=== PATIENT | male | born 1980 | race Caucasian/White ===

== ENCOUNTER 2024-10-16 15:29 | Outpatient (CLI) | payer BC, SELFPAY ==
[2024-10-16 16:00] LABS: Basophils Absolute Auto 0.13 K/mm3 (0.00-0.10); Basophils Percent Auto 1.3 % (0.0-1.0); Eosinophils Absolute Auto 0.54 K/mm3 (0.02-0.50); Eosinophils Percent Auto 5.5 % (1.0-6.0); Hematocrit 52.6 % (40.0-54.0); Hemoglobin 19.2 g/dL (14.0-18.0); Immature Granulocyte Absolute 0.06 K/mm3 (0.00-0.00); Immature Granulocyte Percent A 0.6 % (0.0-0.0); Lymphocytes Absolute Auto 2.76 K/mm3 (1.10-4.50); Mean Corpuscular HGB Conc 36.5 g/dL (32-36); Mean Corpuscular Hemoglobin 33.3 pg (27.0-31.0); Mean Corpuscular Volume 91.2 fL (78.0-102.0); Mean Platelet Volume 8.9 fl (8.7-11.0); Monocytes Absolute Auto 0.79 K/mm3 (0.10-0.90); Neutrophils Absolute Auto 5.57 K/mm3 (1.70-7.20); Neutrophils Percent Auto 56.6 % (50.0-70.0); Platelet Count Result 314 K/mm3 (150-420); Red Blood Count 5.77 M/mm3 (4.70-6.10); White Blood Count 9.9 K/mm3 (4.8-10.8)
[2024-10-16 16:01] LABS: Add Urine Microscopic? NO; Appearance Urine Clear (Clear); Bilirubin Urine Negative (Negative); Blood Urine Negative (Negative); Color Urine Yellow (Yellow); Glucose Urine UA Negative (Negative); Ketones Urine Negative (Negative); Leukocyte Esterase Ur Negative (Negative); Nitrate Urine Negative (Negative); Protein Urine Negative (Negative); Specific Grav Ur 1.025 (1.010-1.020)
[2024-10-16 16:25] LABS: Hemoglobin A1C 5.1 % (<5.7)
[2024-10-16 17:11] LABS: Erythrocyte Sedimentation Rate 5 mm/hr (0-15)
[2024-10-16 17:12] LABS: Alanine Aminotransferase 42 U/L (16-63); Albumin Level 4.3 g/dL (3.4-5.0); Alkaline Phosphatase 80 U/L (46-116); Anion Gap 7 mmol/L (4-12); Aspartate Amino Transferase 27 U/L (15-37); Bilirubin,Total 0.5 mg/dL (0.00-1.00); Blood Urea Nitrogen 21 mg/dL (7-18); CRP < 0.5 mg/dL (0.0-0.9); Calcium 9.7 mg/dL (8.5-10.1); Carbon Dioxide 35 mmol/L (21-32); Chloride 101 mmol/L (98-108); Cholesterol 203 mg/dL (0-200); Estimated Glomerular Filt Rate > 60; Ferritin 120 ng/mL (26-388); Free T3 3.15 pg/mL (2.18-3.98); Free T4 Free Thyroxine 0.77 ng/dL (0.76-1.46); Glucose 109 mg/dL (70-99); HDL Direct 34 mg/dL (40-60); Iron 95 ug/dL (65-175); LDL Cholesterol Calculated 83 mg/dL (<130); Osmolality Calculated 300 mOsm/kg (285-295); Potassium 5.1 mmol/L (3.5-5.1); Sodium 143 mmol/L (136-145); Thyroid Stimulating Hormone 1.33 uIU/mL (0.36-3.74); Total Protein 7.8 g/dL (6.4-8.2); Triglycerides 429 mg/dL (0-150); Vitamin B12 709 pg/mL (193-986)
[2024-10-16 17:13] LABS: LDL Cholesterol Direct 113 mg/dL (0-130)
== END 2024-10-16 15:30 | disposition home or self-care (01) ==
PROVIDERS: PCP Internal Medicine; Visit Provider Internal Medicine
DX: G62.9 Polyneuropathy, unspecified (principal); I10 Essential (primary) hypertension; E78.2 Mixed hyperlipidemia; M25.511 Pain in right shoulder
CPT/HCPCS: 36415; 80053; 80061; 81003; 81256; 81270; 82607; 82668; 82728; 83036; 83540; 83721; 84439; 84443; 84481; 85025; 85652; 86038; 86039; 86140; 87086

== ENCOUNTER 2025-06-04 10:37 | Outpatient (CLI) | payer MEDICARE, SELFPAY ==
[2025-06-04 11:12] LABS: Hematocrit 49.7 % (40.0-54.0); Hemoglobin 17.7 g/dL (14.0-18.0); Immature Granulocyte Percent A 0.6 % (0.0-0.0); Lymphocytes Absolute Auto 2.56 K/mm3 (1.10-4.50); Mean Corpuscular HGB Conc 35.6 g/dL (32-36); Mean Corpuscular Hemoglobin 32.6 pg (27.0-31.0); Mean Corpuscular Volume 91.5 fL (78.0-102.0); Nucleated Red Blood Cells Absolute Auto 0.00 K/mm3 (0.00-0.00); Nucleated Red Blood Cells Perc 0.0 % (0-0.0); Platelet Count Result 286 K/mm3 (150-420); Red Blood Count 5.43 M/mm3 (4.70-6.10); White Blood Count 8.0 K/mm3 (4.8-10.8)
[2025-06-04 11:34] LABS: Alanine Aminotransferase 26 U/L (6-50); Albumin Level 4.5 g/dL (3.5-5.1); Alkaline Phosphatase 55 U/L (38-126); Anion Gap 10 mmol/L (4-12); Aspartate Amino Transferase 31 U/L (17-59); Bilirubin,Total 0.7 mg/dL (0.2-1.3); Blood Urea Nitrogen 20 mg/dL (9-20); Calcium 10.6 mg/dL (8.4-10.2); Carbon Dioxide 32 mmol/L (22-30); Chloride 100 mmol/L (98-107); Estimated Glomerular Filt Rate > 60; Glucose 123 mg/dL (65-110); Iron 181 ug/dL (49-181); Osmolality Calculated 297 mOsm/kg (285-295); Potassium 4.4 mmol/L (3.4-5.0); Sodium 142 mmol/L (137-145); Total Protein 7.3 g/dL (6.3-8.2)
[2025-06-04 11:50] LABS: HIV 1 P24 AG Negative (Negative); HIV 1/2 AB Negative (Negative)
--- OUTSIDE RECORDS SUMMARY | 2025-06-04 12:05 | XMS_ITS | Clinical Summary ---
Author Organization [facility] [employer] Address [address] [place] [address] Care Team Providers Care Customer Service Officer Name Role Phone Unavailable Primary Care Provider Unavailabl e Source Comments [facility] [employer],non-owned Affiliates and Associated Physician Practices is amultiple site organization consisting of ambulatory clinics and hospital sitesin [place], [place], [place] and [place]. This disclosure is being madepursuant to the Care Everywhere program and may not contain all information available regarding this patient. Last updated 18.[employer] Allergies No known active allergies Medications * Be aware that medications may not be up to date on this document. Alwaysverify current medications with the patient. 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 0 01/26/2015 Social History Tobacco Use Types Packs/Day Years Used Date Smoking Tobacco: Never Smokeless Tobacco: Never Tobacco Cessation:Counseling Given: Not Answered Sex and Gender Information Value Date Recorded Sex Assigned at Not on file Legal Sex Male 5:51 PM DEPARTMENT DIRECTOR Gender Identity Not on file Sexual Orientation Not on file Last Filed Vital Signs Vital Sign Reading Time Taken Comments Blood Pressure 130/96 10/07/2017 10:46 AM DEPARTMENT DIRECTOR Pulse 86 04/05/2023 12:39 PM CDT Temperature 37.1 C (98.7 F) 10/07/2017 10:46 AM DEPARTMENT DIRECTOR Respiratory Rate 17 04/05/2023 12:39 PM CDT Oxygen Saturation 95% 04/05/2023 12:39 PM CDT Inhaled Oxygen Concentration - - Weight 100.2 kg (221 lb) 04/05/2023 12:39 PM CDT Height 188 cm (6' 2) 04/05/2023 12:39 PM CDT Body Mass Index 28.37 04/05/2023 12:39 PM CDT Plan of Treatment Health Maintenance Due Date Last Done Comments LIPID TESTING 1980 HEPATITIS C SCREENING 11/29/1998 DTAP/TDAP/TD VACCINES (1 - Tdap) 12/04/1999 HEPATITIS B VACCINE (1 of 3 - 19+ 3-dose series) 12/04/1999 HPV VACCINE (1 - 3-dose SCDM series) 12/04/2007 SCREENING FOR DIABETES 01/04/2023 5, 02/08/2015, 02/07/2015, Additional history exists COVID-19 VACCINE ( - season) 2024 DEPRESSION SCREENING 10/02/2024 INFLUENZA VACCINE (#1) 2025 ZOSTER VACCINE (1 of 2) 2030 HIV SCREENING Completed 01/17/2023 HIB VACCINE Aged Out No longer eligi ble based on patient's age to complete this topic MENINGOCOCCAL (Group B) VACCINE SHARED DECISION-MAKING Aged Out No longer eligible based on patient's age to complete this topic MENINGOCOCCAL GROUPS A/C/Y/W VACCINE Aged Out No longer eligible based on patient's age to complete this topic PNEUMOCOCCAL VACCINE Aged Out No long er eligible based on patient's age to complete this topic Procedures Procedure Name Priority Date/Time Associated Diagnosis Comments HIV-1 HIV-2 ANTIBODY + HIV P24 AG PANEL Routine 01/17/2023 2:12 PM CDT Memory loss BASIC METABOLIC PANEL (CALCIUM TOTAL) Routine 02/09/2015 11:57 PM CDT from Last 3 Months or Most Recently Relevant to Health Maintenance Results * HIV-1 HIV-2 ANTIBODY + HIV P24 AG PANEL (01/17/2023 2:12 PM CDT) [facility] HIV Screen 4th Generation w Reflex Non Reactive Non Reactive [facility] INSURANCE BILL Comment: HIV Negative HIV-1/HIV-2 antibodies and HIV-1 p24 antigen were NOT detected. There is no laboratory evidence of HIV infection. FASTING Blood BLOOD SPECIMEN / Unknown 01/17/2023 2:12 PM CDT 01/17/2023 Narrative Resulting Agency Comment Lab Testing performed at: [facility] [address] [facility] [phone] us Rm Cota MD LAB - CHEMISTRY ORDERABLES Final Result [facility] INSURANCE BILL [address] [place] [address] * (ABNORMAL) BASIC METABOLIC PANEL (CALCIUM TOTAL) (02/09/2015 11:57 PM CDT) [facility] BUN 23 7 - 26 mg/dL [facility] Creatinine 0.7 0.6 - 1.2 mg/dL [facility] Sodium 142 136 - 145 mmol/L [facility] Potassium 4.3 3.5 - 4.5 mmol/L [facility] Chloride 102 98 - 107 mmol/L [facility] CO2 32(H) 22 - 29 mmol/L [facility] Glucose 125(H) 70 - 115 mg/dL [facility] Calcium 9.6 8.4 - 10.2 mg/dL [facility] Anion Gap 12 8 - 18 [facility] BUN/Creatinine Ratio 33(H) 7 - 23 [facility] Osmolality Calculated 284 270 - 300 mOsm/kg [facility] eGFR >60 >60 mL/min/1.7 3 m2 [facility] Blood specimen (specimen) BLOOD SPECIMEN / Unknown 02/09/2015 11:57 PM CDT 02/10/2015 12:13 AM CDT us Bao Granados MD LAB - CHEMISTRY [place] [address], [facility] [phone] from Last 3 Months or Most Recently Relevant to Health Maintenance Insurance [facility] MEDICAID
--- OUTSIDE RECORDS SUMMARY | 2025-06-04 12:05 | XMS_ITS | Clinical Summary ---
Author Organization [facility] Address [address] [place] [address] Phone Care Team Providers Care Manager Integration Name Role Phone Unavailable Primary Care Provider Unavailabl e Allergies No known active allergies Medications No known medications Social History Tobacco Use Types Packs/Day Years Used Date Smoking Tobacco: Never Assessed Sex and Gender Information Value Date Recorded Sex Assigned at Not on file Legal Sex Male 10:27 AM CDT Gender Identity Not on file Sexual Orientation Not on file Plan of Treatment Health Maintenance Due Date Last Done Comments DTAP/TDAP/TD VACCINES (1 - Tdap) 12/04/1999 HEPATITIS B VACCINES (1 of 3 - 19+ 3-dose series) 01/2000 HPV VACCINES (1 - 3-dose SCDM series) 12/04/2007 INFLUENZA VACCINE (#1) 2025
--- OUTSIDE RECORDS SUMMARY | 2025-06-04 12:05 | XMS_ITS | Clinical Summary ---
Author Organization [facility] Address [address] [place] [address] Care Team Providers Care Pile Driving Technician Name Role Phone Mamie Zamora MD Primary Care Provider [phone] Medications cyclobenzaprine (FLEXERIL) 10 MG tablet Take 1 tablet (10 mg total) by mouth 3 (three) times daily as needed. 12/24/2024 Active losartan-hydroCH LOROthiazide (HYZAAR) 100-12.5 MG tablet Take 1 tablet by mouth daily. 11/07/2024 Active Active Problems Problem Noted Date Diagnosed Date Polycythemia 02/27/2025 Encounters Date Type Department Care Team Description 04/24/2025 9:19 AM CDT - 04/24/2025 11:59 PM CDT Hospital Encounter [facility] [place] [address] [address] Carmen Turner MD Therapeutic Phlebotomy Discharge Disposition: Home or Self Care (Routine Discharge) 04/24/2025 9:18 AM CDT Hospital Encounter [facility] [address] [address] Carmen Turner MD Discharge Disposition: Home or Self Care (Routine Discharge) 04/24/2025 Travel 04/16/2025 Orders Only [facility] [place] [address] [address] Carmen Turner MD 03/21/2025 8:45 AM CDT - 03/21/2025 11:59 PM CDT Hospital Encounter [facility] [address] [address] Carmen Turner MD Discharge Disposition: Home or Self Care (Routine Discharge) 03/21/2025 Orders Only [facility] [address] [place] [address] Carmen Turner MD 03/21/2025 Travel from Last 3 Months Social History Tobacco Use Types Packs/Day Years Used Date Smoking Tobacco: Every Day Cigarettes Smokeless Tobacco: Never Tobacco Cessation:Ready to Q uit: Not Asked; Counseling Given: Not Answered Alcohol Use Standard Drinks/Week Comments Yes 0 (1 standard drink = 0.6 oz pur e alcohol) occasionally Sex and Gender Information Value Date Recorded Sex Assigned at Male 01/08/2025 7:59 AM CDT Legal Sex Male 7:36 PM CDT Gender Identity Not on file Sexual Orientation Not on file Last Filed Vital Signs Vital Sign Reading Time Taken Comments Blood Pressure 118/84 04/24/2025 9:49 AM CDT Pulse 82 04/24/2025 9:49 AM CDT Temperature 35.9 C (96.7 F) 04/24/2025 9:49 AM CDT Respiratory Rate 16 04/24/2025 9:49 AM CDT Oxygen Saturation 95% 04/24/2025 9:49 AM CDT Inhaled Oxygen Concentration - - Weight 96.8 kg (213 lb 6.4 oz) 04/24/2025 9:49 A M CDT Height 188 cm (6' 2) 01/16/2025 10:21 AM CDT Body Mass Index 27.4 01/16/2025 10:21 AM CDT Plan of Treatment Health Maintenance Due Date Last Done Comments Annual Physical 12/04/1983 Hepatitis C 1998 DTaP, Tdap and Td Vaccines ( 1 - Tdap) 12/04/1999 Hepatitis B Vaccines (1 of 3 - 19+ 3-dose series) 12/04/1999 Pneumococcal Vaccine: Pediat rics (0 to 5 Years) and At-Risk Patients (6 to 49 Years) (1 of 2 - PCV) 12/04/1999 HPV Vaccines (1 - 3-dose SCD M series) 12/04/2007 COVID-19 Vaccine (2023-2 5 season) 2025 Meningococcal B Vaccine Aged Out No l onger eligible based on patient's age to complete this topic Meningococcal Vaccine Aged Out No alessandra geronimo eligible based on patient's age to complete this topic RSV Immunizations Under 20 Months Aged Out No longer eligible based on patient's age to complete this topic Procedures Procedure Name Priority Date/Time Associated Diagnosis Comments HEMATOCRIT Routine 04/24/2025 9:28 AM CDT Polycythemia BLOOD GAS, ARTERIAL LAB Routine 03/21/2025 9:22 AM CDT Polycythemia CBC W/DIFF AUTOMATED Routine 03/21/2025 9:08 AM CDT Polycythemia from Last 3 Months Results * HEMATOCRIT (04/24/2025 9:28 AM CDT) HCT 50.5 37.0 - 52.0 % 04/24/2025 9:32 AM CDT [facility] 04/24/2025 9:28 AM CDT us Carmen Turner MD LABORATORY Final Result [facility] [address] [place] [address], * (ABNORMAL) ARTERIAL BLOOD GAS (03/21/2025 9:22 AM CDT) PH ARTERIAL 7.49(H) 7.35 - 7.45 03/21/2025 9:30 AM CDT [facility] PCO2 44.0 35.0 - 45.0 MMHG 03/21/2025 9:30 AM CDT [facility] PO2 82.0(L) 83 - 108 MMHG 03/21/2025 9:30 AM CDT [facility] TOTAL CO2 ARTERIAL 34.9(H) 19.0 - 24.0 MMOL/L 03/21/2025 9:30 AM CDT [facility] BASE EXCESS 9.0(H) 0 - 3 MMOL/L 03/21/2025 9:30 AM CDT [facility] O2 SATURATION 97 94.0 - 98.0 % 03/21/2025 9:30 AM CDT [facility] BICARB ARTERIAL 33.5(H) 21.0 - 28.0 MMOL/L 03/21/2025 9:30 AM CDT [facility] SAI TEST N/A 03/21/2025 9:26 AM CDT [facility] O2 ADMIN ARTERIAL ROOM AIR 03/21/2025 9:26 AM CDT [facility] DRAW SITE ARTERIAL RIGHT BRACHIAL 03/21/2025 9:26 AM CDT [facility] 03/21/2025 9:22 AM CDT Carmen Turner MD LABORATORY Final Result [facility] [address] [place] [address], * (ABNORMAL) CBC W/DIFF AUTOMATED (03/21/2025 9:08 AM CDT) WBC 7.60 4.00 - 10.80 x10'3/uL 03/21/2025 9:14 AM CDT [facility] RBC 5.44 4.50 - 6.10 x10'6/uL 03/21/2025 9:14 AM CDT [facility] HGB 18.0 13.0 - 18.0 G/DL 03/21/2025 9:14 AM CDT [facility] HCT 49.5 37.0 - 52.0 % 03/21/2025 9:14 AM CDT [facility] MCV 91.0 78.0 - 100.0 FL 03/21/2025 9:14 AM CDT [facility] MCH 33.1(H) 27.0 - 31.0 PG 03/21/2025 9:14 AM CDT [facility] MCHC 36.4(H) 33.0 - 36.0 G/DL 03/21/2025 9:14 AM CDT [facility] RDW 12.0 11.5 - 14.5 % 03/21/2025 9:14 AM CDT [facility] PLT 252 150 - 350 x10'3/uL 03/21/2025 9:14 AM CDT [facility] MPV 9.1 7.4 - 10.4 FL 03/21/2025 9:14 AM CDT [facility] CBC COMMENT NORMAL REFERENCE RANGE NOT ESTABLISHED FOR THE PROPORTIONAL LEUKOCYTE DIFFERENTIAL. 03/21/2025 9:14 AM CDT [facility] NEUTROPHILS % 55.0 % 03/21/2025 9:14 AM CDT [facility] LYMPHOCYTES % 27.2 % 03/21/2025 9:14 AM CDT [facility] MONOCYTES % 8.3 % 03/21/2025 9:14 AM CDT [facility] EOSINOPHILS % 8.0 % 03/21/2025 9:14 AM CDT [facility] BASOPHILS % 1.1 % 03/21/2025 9:14 AM CDT [facility] IMMATURE GRANS % 0.4 % 03/21/20 9:14 AM CDT [facility] NRBC % 0.0 % 03/21/2025 9:14 AM CDT [facility] ABS. NEUTROPHILS 4.18 1.60 - 8.30 x10'3/uL 03/21/2025 9:14 AM CDT [facility] ABS. LYMPHOCYTES 2.07 0.80 - 4.70 x10'3/uL 03/21/2025 9:14 AM CDT [facility] ABS. MONOCYTES 0.63 0.00 - 1.50 x10'3/uL 03/21/2025 9:14 AM CDT [facility] ABS. EOSINOPHILS 0.61(H) 0.00 - 0.40 x10'3/uL 03/21/2025 9:14 AM CDT [facility] ABS. BASOPHILS 0.08 0.00 - 0.20 x10'3/uL 03/21/2025 9:14 AM CDT [facility] ABS. IMMATURE GRANULOCYTES 0.03 0.00 - 0.03 x10'3/uL 03/21/2025 9:14 AM CDT [facility] ABS. NUCLEATED RBC'S 0.00 0.00 - 0.01 x10'3/uL 03/21/2025 9:14 AM CDT [facility] 03/21/2025 9:08 AM CDT us Carmen Turner MD LABORATORY Final Result [facility] [address] [place] [id number], from Last 3 Months Insurance MEDICAID MEDICARE Care Teams Pile Driving Technician Relationship Specialty Start Date End Date Mamie Zamora MD [address] [place] [address] PCP - General INTERNAL MEDICINE 01/03/25
[2025-06-04 12:09] LABS: Ferritin 34.30 ng/mL (17.9-464)
== END 2025-06-04 10:38 | disposition home or self-care (01) ==
LOC: CHSLAB 10:40
PROVIDERS: PCP Internal Medicine; Visit Provider Internal Medicine Hematology
DX: E83.119 Hemochromatosis, unspecified (principal)
CPT/HCPCS: 36415; 80053; 82728; 83540; 85025; 87806

== ENCOUNTER 2025-06-28 08:52 | Outpatient (CLI) | payer MEDICARE, SELFPAY ==
--- NOTE | ~2025-06-28 | MR_ITS ---
EXAMINATION: MR abdomen wo/w con DATE: 06/28/2025 10:16 INDICATION: Hemachromatosis. TECHNIQUE: Magnetic resonance imaging (MRI) of the abdomen was performed without and with 19 mL MultiHance intravenous contrast. COMPARISON: None. FINDINGS: There is diffuse hepatic steatosis. There is mild splenomegaly. The gallbladder, pancreas, adrenal glands, and right kidney are normal. There is a 3 mm cyst in left kidney. There are no dilated loops of bowel. There are no pathologically enlarged lymph nodes. There is no ascites. IMPRESSION: 1. Diffuse hepatic steatosis. 2. Mild splenomegaly. Reviewed, dictated and finalized at location E.
--- OUTSIDE RECORDS SUMMARY | 2025-06-28 08:57 | XMS_ITS | Clinical Summary ---
Author Organization [facility] [facility] Address [address] [place] [address] Phone Care Team Providers Care Ironmolder Name Role Phone Unavailable Primary Care Provider [...]
--- OUTSIDE RECORDS SUMMARY | 2025-06-28 08:57 | XMS_ITS | Clinical Summary ---
Author Organization [facility] Address [address] [facility] [place] [address] Care Team Providers Care Supervisor Briar Shop Name Role Phone Unavailable Primary Care Provider Unavailabl e Source Comments [facility],non-owned Affiliates and Associated Physician Practices is amultiple site organization consisting of ambulatory clinics and hospital sitesin [place], [place] and [place]. This disclosure is being madepursuant to the Care Everywhere program and may not contain all information available regarding this patient. Last updated 18.[facility] Allergies No known active allergies Medications * [...] on file Legal Sex Male 5:51 PM PSYCHIATRIC ARNP Gender Identity Not on file Sexual Orientation Not on file Last Filed Vital Signs Vital Sign Reading Time Taken Comments Blood Pressure 130/96 10/07/2017 10:46 AM PSYCHIATRIC ARNP Pulse 86 04/05/2023 12:39 PM CDT Temperature 37.1 C (98.7 F) 10/07/2017 10:46 AM PSYCHIATRIC ARNP Respiratory Rate 17 04/05/2023 12:39 PM CDT [...] 01/04/2023 5, 02/08/2015, 02/07/2015, Additional history exists DEPRESSION SCREENING 10/02/2024 COVID-19 VACCINE ( season) 2025 INFLUENZA VACCINE (#1) 2025 ZOSTER VACCINE (1 [...] P24 AG PANEL (01/17/2023 2:12 PM CDT) [facility] HIV Screen 4th Generation w Reflex Non Reactive Non Reactive [facility] INSURANCE BILL Comment: HIV Negative HIV-1/HIV-2 antibodies and HIV-1 p24 antigen were NOT detected. There is no laboratory evidence of HIV infection. FASTING Blood BLOOD SPECIMEN / Unknown 01/17/2023 2:12 PM CDT 01/17/2023 Narrative Resulting Agency Comment [facility] [address] [facility] [phone] us Rm Cota MD LAB - CHEMISTRY ORDERABLES Final Result [facility] INSURANCE BILL [address] [place] [address] * (ABNORMAL) BASIC METABOLIC PANEL (CALCIUM TOTAL) (02/09/2015 11:57 PM CDT) [facility] BUN 23 7 - 26 mg/dL [facility] Creatinine 0.7 0.6 - 1.2 mg/dL [facility] Sodium 142 136 - 145 mmol/L [facility] Potassium 4.3 3.5 - 4.5 mmol/L [facility] Chloride 102 98 - 107 mmol/L [facility] CO2 32(H) 22 - 29 mmol/L [facility] Glucose 125(H) 70 - 115 mg/dL [facility] Calcium 9.6 8.4 - 10.2 mg/dL [facility] Anion Gap 12 8 - 18 [facility] BUN/Creatinine Ratio 33(H) 7 - 23 [facility] Osmolality Calculated 284 270 - 300 mOsm/kg [facility] eGFR >60 >60 mL/min/1.[address] [facility] Blood specimen (specimen) BLOOD SPECIMEN / Unknown 02/09/2015 11:57 PM CDT 02/10/2015 12:13 AM CDT us Bao Granados MD LAB - CHEMISTRY [place] [address], [facility] [phone] from Last 3 Months or Most Recently Relevant to Health Maintenance Insurance [facility] MEDICAID
--- OUTSIDE RECORDS SUMMARY | 2025-06-28 08:57 | XMS_ITS | Clinical Summary ---
Author Organization [facility] Address [address] [place] [address] Care Team Providers Care Sports Analyst Name Role Phone Mamie Zamora MD Primary Care Provider Medications cyclobenzaprine (FLEXERIL) 10 MG tablet Take 1 tablet (10 mg total) by mouth 3 (three) times daily as needed. 12/24/2024 Active losartan-hydroCH LOROthiazide (HYZAAR) 100-12.5 MG tablet Take 1 tablet by mouth daily. 11/07/2024 Active Active Problems Problem Noted Date Diagnosed Date Polycythemia 02/27/2025 Encounters Date Type Department Care Team Description 04/24/2025 9:19 AM T - 04/24/2025 11:59 PM [facility] Hospital Encounter [facility] [place] [address] [address] Carmen Turner MD Therapeutic Phlebotomy Discharge Disposition: Home or Self Care (Routine Discharge) 04/24/2025 9:18 AM [facility] Hospital Encounter [facility] [address] [address] Carmen Turner MD Discharge Disposition: Home or Self Care (Routine Discharge) 04/24/2025 Travel 04/16/2025 Orders Only [facility] [place] [address] [address] Carmen Turner MD from Last 3 Months Social History Tobacco [...] 3-dose SCD M series) 12/04/2007 COVID-19 Vaccine ( - 2023-2 5 season) 2025 Meningococcal B Vaccine Aged [...] HEMATOCRIT Routine 04/24/2025 9:28 AM CDT Polycythemia from Last 3 Months Results * HEMATOCRIT (04/24/2025 9:28 AM CDT) HCT 50.5 37.0 - 52.0 % 04/24/2025 9:32 AM CDT [facility] 04/24/2025 9:28 AM CDT Carmen Turner MD LABORATORY Final Result [facility] [address] [place] [address], from Last 3 Months Insurance MEDICAID MEDICARE Care Teams Sports Analyst Relationship Specialty Start Date End Date Mamie Zamora MD [address] [place] [address] PCP - General INTERNAL MEDICINE 01/03/25
== END 2025-06-28 08:53 | disposition home or self-care (01) ==
PROVIDERS: PCP Internal Medicine; Visit Provider Internal Medicine Hematology
DX: E83.119 Hemochromatosis, unspecified (principal); K76.0 Fatty (change of) liver, not elsewhere classified; R16.1 Splenomegaly, not elsewhere classified
CPT/HCPCS: 74183; A9577

== ENCOUNTER 2025-07-04 09:54 | Outpatient (CLI) | payer MEDICARE, SELFPAY ==
[2025-07-04 10:00] VITALS: BP 136/86; PULSE 88; RESP 14; TEMP 36.6; O2SAT 97; BMI 27.6
--- OUTSIDE RECORDS SUMMARY | 2025-07-04 10:11 | XMS_ITS | Clinical Summary ---
Author Organization [employer] [facility] Address [address] [place] [address] Phone Care Team Providers Care Pattern Marking Supervisor Name Role Phone Unavailable Primary Care Provider [...]
--- OUTSIDE RECORDS SUMMARY | 2025-07-04 10:11 | XMS_ITS | Clinical Summary ---
Author Organization [facility] Address [address] [place] [address] Care Team Providers Care Welding Technician Name Role Phone Mamie Zamora MD Primary Care Provider [phone] Medications cyclobenzaprine (FLEXERIL) 10 MG tablet Take 1 tablet (10 mg total) by mouth 3 (three) times daily as needed. 12/24/2024 Active losartan-hydroCH LOROthiazide (HYZAAR) 100-12.5 MG tablet Take 1 tablet by mouth daily. 11/07/2024 Active Active Problems Problem Noted Date Diagnosed Date Polycythemia 02/27/2025 Encounters Date Type Department Care Team Description 04/24/2025 9:19 AM T - 04/24/2025 11:59 PM [facility] Hospital Encounter [facility] [place] [address] [address] Carmen Turner MD Therapeutic Phlebotomy Discharge Disposition: Home or Self Care (Routine Discharge) 04/24/2025 9:18 AM [facility] Hospital Encounter [facility] [address] [address] Carmen Turner MD Discharge Disposition: Home or Self Care (Routine Discharge) 04/24/2025 Travel 04/16/2025 Orders Only [facility] [address] [address] Carmen Turner MD from Last 3 Months [...] - 52.0 % 04/24/2025 9:32 AM CDT [facility] 04/24/2025 9:28 AM CDT Carmen Turner MD LABORATORY Final Result [facility] [address] [place] [address], from Last 3 Months Insurance MEDICAID MEDICARE Care Teams Welding Technician Relationship Specialty Start Date End Date Mamie Zamora MD [address] [place] [address] PCP - General INTERNAL MEDICINE 01/03/25
--- OUTSIDE RECORDS SUMMARY | 2025-07-04 10:11 | XMS_ITS | Clinical Summary ---
Author Organization [facility] Address [address] [place] [address] Care Team Providers Care Asparagus Buncher Name Role Phone Unavailable Primary Care Provider Unavailabl e Source Comments [facility],non-owned Affiliates and Associated Physician Practices is amultiple site organization consisting of ambulatory clinics and hospital sitesin [place], [place], [place] and [place]. This disclosure is being madepursuant to the Care Everywhere program and may not contain all information available regarding this patient. Last updated 18.[employer] [facility] [employer] [facility] Allergies No known active allergies Medications * [...] on file Legal Sex Male 5:51 PM SURGICAL ASSISTANT Gender Identity Not on file Sexual Orientation Not on file Last Filed Vital Signs Vital Sign Reading Time Taken Comments Blood Pressure 130/96 10/07/2017 10:46 AM SURGICAL ASSISTANT Pulse 86 04/05/2023 12:39 PM CDT Temperature 37.1 C (98.7 F) 10/07/2017 10:46 AM SURGICAL ASSISTANT Respiratory Rate 17 04/05/2023 12:39 PM CDT [...] P24 AG PANEL (01/17/2023 2:12 PM CDT) [facility] HIV Screen 4th Generation w Reflex Non Reactive Non Reactive [facility] INSURANCE BILL Comment: HIV Negative HIV-1/HIV-2 antibodies and HIV-1 p24 antigen were NOT detected. There is no laboratory evidence of HIV infection. FASTING Blood BLOOD SPECIMEN / Unknown 01/17/2023 2:12 PM CDT 01/17/2023 Narrative Resulting Agency Comment [facility]: [facility] [address] [phone] us Rm Cota MD LAB - CHEMISTRY ORDERABLES Final Result [facility] INSURANCE BILL [address] [place] [address] * (ABNORMAL) BASIC METABOLIC PANEL (CALCIUM TOTAL) (02/09/2015 11:57 PM CDT) [facility] BUN 23 7 - 26 mg/dL [facility] Creatinine 0.7 0.6 - 1.2 mg/dL [facility] Sodium 142 136 - 145 mmol/L [facility] Potassium 4.3 3.5 - 4.5 mmol/L [facility] Chloride 102 98 - 107 mmol/L [facility] CO2 32(H) 22 - 29 mmol/L [facility] Glucose 125(H) 70 - 115 mg/dL [facility] Calcium 9.6 8.4 - 10.2 mg/dL [facility] Anion Gap 12 8 - 18 [facility] BUN/Creatinine Ratio 33(H) 7 - 23 [facility] Osmolality Calculated 284 270 - 300 mOsm/kg [facility] eGFR >60 >60 mL/min/1.7 3 m2 [facility] Blood specimen (specimen) BLOOD SPECIMEN / Unknown 02/09/2015 11:57 PM CDT 02/10/2015 12:13 AM CDT us Bao Granados MD LAB - CHEMISTRY [place] [address], [facility] [phone] from Last 3 Months or Most Recently Relevant to Health Maintenance Insurance [facility] MEDICAID
[2025-07-04 10:15] LABS: Hematocrit 52.2 % (40.0-54.0); Hemoglobin 18.7 g/dL (14.0-18.0)
[2025-07-04 10:20] VITALS: BP 128/80; PULSE 80; RESP 14; TEMP 36.4; O2SAT 97
[2025-07-04] MEDS: SODIUM CHLORIDE 0.9% IV 500 ML 1000 ML IVPB (10:20)
[2025-07-04 10:50] VITALS: BP 120/82; PULSE 80; RESP 14; TEMP 36.4; O2SAT 97
--- NOTE | 2025-07-04 11:01 | PC.NURSE ---
Patient tolerated therapeutic phlebotomy and post IV fluids after well. SEE MAR/patient care notes.
== END 2025-07-04 09:55 | disposition home or self-care (01) ==
PROVIDERS: PCP Internal Medicine; Visit Provider Internal Medicine Hematology
DX: E83.119 Hemochromatosis, unspecified (principal)
CPT/HCPCS: 36415; 36591; 85014; 85018; 96360; 99195; J7040